=== PATIENT | male | born 1950 | race Caucasian/White ===

== ENCOUNTER 2019-02-23 08:18 | Inpatient (IN) | payer OTHER ==
[2019-02-23 09:09] VITALS: BMI 18.7
--- NOTE | 2019-02-23 09:35 | HP ---
COWS - Scale Resting Pulse: 0= [place] 80 or Below Sweatin= No chills or Flushing Restless Observation: 3= Extraneous Movement Pupil Size: 0= Normal to Room Light Bone or Joint Aches: 4=Acute Joint/Muscle Pain Runny Nose/ Eye Tearin= None GI Upset > 30mins: 0= None Tremor Observation: 0= None Yawning Observation: 0= None Anxiety or Irritability: 2=Irritable/Anxious Goose Flesh Skin: 0=Smooth Skin COWS Score: 9 CIWA Score Nausea/Vomitin-No Nausea/No Vomiting Muscle Tremors: None Anxiety: 3 Agitation: 1-Slight > Activity Paroxysmal Sweats: No Perspiration Orientation: 0-Oriented Tacttile Disturbances: 0-None Auditory Disturbances: 0-None Visual Disturbances: 0-None Headache: 0-None Present CIWA-Ar Total Score: 4 - Admission Criteria OASAS Guidelines: Admission for Medically Managed Detox: Requires at least one of the followin. CIWA greater than 12 2. Seizures within the past 24 hours 3. Delirium tremens within the past 24 hours 4. Hallucinations within the past 24 hours 5. Acute intervention needed for co occurring medical disorder 6. Acute intervention needed for co occurring psychiatric disorder 7. Severe withdrawal that cannot be handled at a lower level of care (continued vomiting, continued diarrhea, abnormal vital signs) requiring intravenous medication and/or fluids 8. Admission ROS [facility] Allergies/Adverse Reactions: Allergies Allergy/AdvReac Type Severity Reaction Status Date / Time Penicillins Allergy Intermediate Hives Verified 02/23/19 08:57 History of Present Illness: pt here requesting detox from heroin , first age of use 13 , then stopped until2 years ago , current daily use 10 bags/day denies ivdu , latest use this morning, current symptoms as above , no withdrawal , reports he anticipates being in withdrawal later this afternoon . cocaine : a few times/week cannabis : occasionally fentanyl - " maybe " oxycodone : denies benzo : denies etoh : 40 oz beer x one , denies symptoms if not drinking . tobacco : 1 ppd , ambivalent bout smoking cessation PMHX : R kidney tumor , monthly infusions , [facility] , next APpt 03/20/19 PSHX : r kidney partial resection , C6-7 fusion , L-spine surgery PSych : denies , denies current SI / HI . meds : denies Search Terms: reji ramirez, 1950 Search Date: 02/23/2019 09:41:14 AM The Drug Utilization Report below displays all of the controlled substance prescriptions, if any, that your patient has filled in the last twelve months. The information displayed on this report is compiled from pharmacy submissions to the Department, and accurately reflects the information as submitted by the pharmacies. This report was requested by: Pamela Ortiz | Reference #: [id number] Others' Prescriptions Patient Name: Reji Ramirez Date: 1950 Address: [address] [id number] Sex: Male Rx Written Rx Dispensed Drug Quantity Days Supply Prescriber Name 02/17/2019 02/20/2019 tramadol hcl 50 mg tablet 120 30 Cho, Stef Cuenca MD 01/07/2019 01/07/2019 buprenorphine 8 mg tablet sl 8 8 Dl Shen 12/31/2018 12/31/2018 buprenorphine-naloxone 8-2 mg sl film 16 8 [facility] 11/26/2018 11/26/2018 tramadol hcl 50 mg tablet 180 30 ChoStef MD 10/29/2018 10/29/2018 tramadol hcl 50 mg tablet 180 30 ChoStef MD 09/17/2018 09/17/2018 tramadol hcl 50 mg tablet 90 15 ChoStef MD 09/03/2018 09/03/2018 tramadol hcl 50 mg tablet 90 15 ChoStef MD 08/20/2018 08/20/2018 tramadol hcl 50 mg tablet 90 15 ChoStef MD 08/06/2018 08/06/2018 tramadol hcl 50 mg tablet 90 15 ChoStef MD 07/22/2018 07/22/2018 tramadol hcl 50 mg tablet 90 15 ChoStef MD 07/08/2018 07/08/2018 tramadol hcl 50 mg tablet 90 15 ChoStef MD 06/11/2018 06/11/2018 tramadol hcl 50 mg tablet 90 15 ChoStef MD 05/19/2018 05/19/2018 tramadol hcl 50 mg tablet 90 15 ChoStef MD 05/04/2018 05/05/2018 oxycodone-acetaminophen 5-325 mg tablet 10 2 Karla Palma ( BE[facility]ZAD) 04/23/2018 04/23/2018 tramadol hcl 50 mg tablet 90 15 ChoStef MD 04/09/2018 04/09/2018 tramadol hcl 50 mg tablet 90 15 ChoStef MD 03/26/2018 03/26/2018 tramadol hcl 50 mg tablet 90 15 Cho, Stef Cuenca MD 03/12/2018 03/12/2018 tramadol hcl 50 mg tablet 28 7 Ga Koehler Exam Limitations: No Limitations - Ebola screening Have you traveled outside of the country in the last 21 days: No Have you had contact with anyone from an Ebola affected area: No - Review of Systems Constitutional: See HPI, Loss of Appetite, Unintentional Wgt. Loss (reports 40 lbs in the year) EENT: reports: Other (glasses) Respiratory: reports: No Symptoms reported Cardiac: reports: No Symptoms Reported GI: reports: No Symptoms Reported : reports: No Symptoms Reported Musculoskeletal: reports: See HPI Integumentary: reports: Dryness, Other (easy bruising) Neuro: reports: No Symptoms reported Endocrine: reports: No Symptoms Reported Psychiatric: reports: Orientated x3, Anxious Patient History - Smoking Cessation Smoking history: Current every day smoker Have you smoked in the past 12 months: Yes Hx Chewing Tobacco Use: No Initiated information on smoking cessation: No - Substances abused Heroin Substance route: Inhalation Frequency: Daily Amount used: 8-10 BAGS Age of first use: 13 Date of last use: 02/23/19 Cocaine Substance route: Inhalation Frequency: 1-2 times per week Amount used: 1/2GRAM Age of first use: 17 Date of last use: 02/22/19 Family Disease History - Family Disease History Family Disease History: CA: Mother (d. lung CA 84 ), Brother (d. brain CA 62 ), Other: Father (d. 75 unknown cause ), Mother, Brother, Daughter (neutrophilia ) Admission Physical Exam BHS - Vital Signs Vital Signs: Vital Signs - 24 hr 02/23/19 09:03 Temperature 97.8 F Pulse Rate 74 Respiratory 17 Rate Blood Pressure 110/62 - Physical General Appearance: Yes: Disheveled, Mild Distress, Anxious HEENTM: Yes: Normocephalic, Normal Voice, Other (large mass suprasternal notch , pt states aware , due to cancer, oncology expamined and ongoing infusions to address .) Respiratory: Yes: Lungs Clear, Normal Breath Sounds, No Respiratory Distress, No Accessory Muscle Use Neck: Yes: No masses,lesions,Nodules, Trachea in good position Cardiology: Yes: Regular Rhythm, Regular Rate, S1, S2 Abdominal: Yes: Non Tender, Flat, Soft, Surgical Scar Back: Yes: Normal Inspection Musculoskeletal: Yes: Gait Steady Extremities: Yes: Normal Range of Motion, Non-Tender, Erythema (robert le) Integumentary: Yes: Pitting Edema (robert LE), Other (fragile skin , numerous excoriations UE / LE tattoos) - Diagnostic (1) Opiate abuse, continuous Current Visit: Yes Status: Acute (2) Cocaine abuse, episodic use Current Visit: Yes Status: Acute (3) Cannabis use disorder, mild, abuse Current Visit: Yes Status: Acute (4) Nicotine dependence Current Visit: Yes Status: Chronic Qualifiers: Nicotine product type: cigarettes Inpatient Rehab Admission - Rehab Decision to Admit Inpatient rehab admission?: No
[2019-02-23] MEDS ORDERED: BISMUTH SUBSALICYLATE 524 MG/30 ML UD PO PRN (10:22)
[2019-02-23] MEDS ORDERED: MENTHOL/PHENOL 1 EACH UD MM PRN (10:22)
[2019-02-23] MEDS ORDERED: MAGNESIUM CITRATE 300 ML BOTTLE PO PRN (10:22)
[2019-02-23] MEDS ORDERED: IBUPROFEN 400 MG TABLET (FP) PO PRN (10:22)
[2019-02-23] MEDS ORDERED: MAG HYDROX/AL HYDROX/SIMETH 30 ML UNIT-DOSE CUP PO PRN (10:22)
[2019-02-23] MEDS ORDERED: ACETAMINOPHEN 325 MG TABLET (FP) PO PRN ×2 (10:22)
[2019-02-23] MEDS ORDERED: hydrOXYzine HCL 25 MG TABLET (FP) PO PRN (10:22)
[2019-02-23] MEDS ORDERED: MAGNESIUM HYDROX 2400MG/30ML ORAL SUSPENSION 30 ML CUP PO PRN (10:22)
[2019-02-23] MEDS ORDERED: cloNIDine HCL 0.1 MG TABLET PO PRN (10:23)
[2019-02-23] MEDS: NICOTINE POLACRILEX 2 MG GUM BUC PRN (18:02)
[2019-02-23] MEDS: THIAMINE HCL 100 MG TABLET (FP) PO SCH (22:14)
[2019-02-23] MEDS: MELATONIN 5 MG TABLETS PO PRN (22:15)
[2019-02-23] MEDS ORDERED: METHADONE HCL 5 MG TABLET (FOR DETOX USE ONLY) PO ONE (23:00)
[2019-02-24] MEDS ORDERED: METHADONE HCL 10 MG TABLET (FOR DETOX USE ONLY) PO ONE ×2 (10:00→11:00)
[2019-02-24 10:02] LABS: HEMATOCRIT 40.9 % (35.4-49); HEMOGLOBIN 13.5 GM/dL (11.7-16.9); MCH 28.1 pg (25.7-33.7); MEAN CELL VOLUME 85.2 fl (80-96); MEAN PLT VOLUME 8.7 fl (7.5-11.1); PLATELET COUNT 462 K/MM3 (134-434); WHITE BLOOD COUNT 10.3 K/mm3 (4.0-10.0)
[2019-02-24 10:19] LABS: ALBUMIN 3.5 g/dl (3.4-5.0); BILIRUBIN,TOTAL 0.5 mg/dL (0.2-1); BLOOD UREA NITROGEN 15.6 mg/dL (7-18); CALCIUM 9.2 mg/dL (8.5-10.1); CREATININE 0.8 mg/dL (0.55-1.3); POTASSIUM 4.3 mmol/L (3.5-5.1); TOT PROT 8.7 g/dl (6.4-8.2)
[2019-02-24] MEDS ORDERED: cloNIDine HCL 0.1 MG TABLET PO PRN (10:20)
--- NOTE | 2019-02-24 10:26 | PN ---
BHS COWS - Scale Resting Pulse: 2= [place] 101-120 Sweatin= Chills/Flushing Restless Observation: 1= Difficult to Sit Still Pupil Size: 0= Normal to Room Light Bone or Joint Aches: 1= Mild Discomfort Runny Nose/ Eye Tearin= Runny Nose/Eyes GI Upset > 30mins: 1= Stomach Cramp Tremor Observation of Outstretched Hands: 1= Tremor [place], Not Seen Yawning Observation: 0= None Anxiety or Irritability: 2=Irritable/Anxious Goose Flesh Skin: 3=Piloerection COWS Score: 14 BHS Progress Note (SOAP) Subjective: pt states he came last night, still feels like he is in withdrawal. Rec'd 15 mg of methadone this morning. O: Vital Signs - 24 hr 02/23/19 02/23/19 02/23/19 13:27 17:34 21:12 Temperature 98.4 F 98.2 F 99 F Pulse Rate 88 84 97 H Respiratory 18 16 16 Rate Blood Pressure 121/70 130/62 141/86 02/24/19 02/24/19 06:13 09:21 Temperature 97.9 F 98.1 F Pulse Rate 94 H 90 Respiratory 16 16 Rate Blood Pressure 126/78 118/63 Laboratory Tests 02/24/19 02/24/19 07:50 07:50 WBC 10.3 H RBC 4.80 Hgb 13.5 Hct 40.9 MCV 85.2 MCH 28.1 MCHC 33.0 RDW 19.0 H Plt Count 462 H MPV 8.7 Sodium 137 Potassium 4.3 Chloride 102 Carbon Dioxide 27 Anion Gap 9 BUN 15.6 Creatinine 0.8 Est GFR (CKD-EPI)AfAm 105.64 Est GFR (CKD-EPI)NonAf 91.15 Random Glucose 100 Calcium 9.2 Total Bilirubin 0.5 AST 17 ALT 23 Alkaline Phosphatase 87 Total Protein 8.7 H Albumin 3.5 a/p: will increase methadone dosing, d/w pt correction methadone tx clonidine/vistaril/Klonopin prn for Sx relief
[2019-02-24] MEDS ORDERED: NALOXONE HCL 0.4 MG/ML VIAL IM PRN (10:45)
[2019-02-24] MEDS: PRENATAL VITAMINS W/ FOLIC ACID TABLET (FP) PO SCH (10:59)
[2019-02-24] MEDS: clonazePAM 0.5 MG TABLET PO PRN (11:00)
[2019-02-24] MEDS: NICOTINE POLACRILEX 2 MG GUM BUC PRN (11:03)
[2019-02-24] MEDS: NICOTINE 21 MG/24 HOURS TOPICAL PATCH TD SCH (14:00)
[2019-02-24] MEDS: MELATONIN 5 MG TABLETS PO PRN (22:42)
[2019-02-24] MEDS: THIAMINE HCL 100 MG TABLET (FP) PO SCH (22:42)
--- NOTE | 2019-02-25 09:38 | PN ---
BHS COWS - Scale Resting Pulse: 1= [place] 81-100 Sweatin= Chills/Flushing Restless Observation: 1= Difficult to Sit Still Pupil Size: 1= Pupils >than Normal Bone or Joint Aches: 1= Mild Discomfort Runny Nose/ Eye Tearin= Runny Nose/Eyes GI Upset > 30mins: 2= Nausea/Diarrhea Tremor Observation of Outstretched Hands: 1= Tremor [place], Not Seen Yawning Observation: 1= 1-2x During Session Anxiety or Irritability: 2=Irritable/Anxious Goose Flesh Skin: 0=Smooth Skin COWS Score: 13 S Progress Note (SOAP) Subjective: alert,irritable,anxious,pain in the body and back,tremor,interrupted sleep Objective: 02/25/19 09:35 Vital Signs Temperature 97.2 F L 02/25/19 09:25 Pulse Rate 82 02/25/19 09:25 Respiratory Rate 18 02/25/19 09:25 Blood Pressure 122/72 02/25/19 09:25 O2 Sat by Pulse Oximetry (%) Laboratory Last Values WBC 10.3 K/mm3 (4.0-10.0) H 02/24/19 07:50 RBC 4.80 M/mm3 (4.00-5.60) 02/24/19 07:50 Hgb 13.5 GM/dL (11.7-16.9) 02/24/19 07:50 Hct 40.9 % (35.4-49) 02/24/19 07:50 MCV 85.2 fl (80-96) 02/24/19 07:50 MCH 28.1 pg (25.7-33.7) 02/24/19 07:50 MCHC 33.0 g/dl (32.0-35.9) 02/24/19 07:50 RDW 19.0 % (11.9-15.9) H 02/24/19 07:50 Plt Count 462 K/MM3 (134-434) H 02/24/19 07:50 MPV 8.7 fl (7.5-11.1) 02/24/19 07:50 Sodium 137 mmol/L (136-145) 02/24/19 07:50 Potassium 4.3 mmol/L (3.5-5.1) 02/24/19 07:50 Chloride 102 mmol/L (98-107) 02/24/19 07:50 Carbon Dioxide 27 mmol/L (21-32) 02/24/19 07:50 Anion Gap 9 MMOL/L (8-16) 02/24/19 07:50 BUN 15.6 mg/dL (7-18) 02/24/19 07:50 Creatinine 0.8 mg/dL (0.55-1.3) 02/24/19 07:50 Est GFR (CKD-EPI)AfAm 105.64 02/24/19 07:50 Est GFR (CKD-EPI)NonAf 91.15 02/24/19 07:50 Random Glucose 100 mg/dL (74-106) 02/24/19 07:50 Calcium 9.2 mg/dL (8.5-10.1) 02/24/19 07:50 Total Bilirubin 0.5 mg/dL (0.2-1) 02/24/19 07:50 AST 17 U/L (15-37) 02/24/19 07:50 ALT 23 U/L (13-61) 02/24/19 07:50 Alkaline Phosphatase 87 U/L (45-117) 02/24/19 07:50 Total Protein 8.7 g/dl (6.4-8.2) H 02/24/19 07:50 Albumin 3.5 g/dl (3.4-5.0) 02/24/19 07:50 RPR Titer Nonreactive (NONREACTIVE) 02/24/19 07:50 Assessment: 02/25/19 09:36 withdrawal symptom Plan: continue detox,wbc 10,300,possible dehydration,encourage oral fluid,repeat cbc in am,continue detox methadone regimen
[2019-02-25] MEDS ORDERED: METHADONE HCL 5 MG TABLET (FOR DETOX USE ONLY) PO ONE (10:00)
[2019-02-25] MEDS ORDERED: METHADONE HCL 10 MG TABLET (FOR DETOX USE ONLY) PO ONE (10:00)
[2019-02-25] MEDS: PRENATAL VITAMINS W/ FOLIC ACID TABLET (FP) PO SCH (10:09)
[2019-02-25] MEDS: clonazePAM 0.5 MG TABLET PO PRN ×2 (10:09→23:06)
[2019-02-25] MEDS: NICOTINE 21 MG/24 HOURS TOPICAL PATCH TD SCH (10:09)
[2019-02-25] MEDS: THIAMINE HCL 100 MG TABLET (FP) PO SCH (23:06)
--- NOTE | 2019-02-26 09:12 | PN ---
BHS COWS - Scale Resting Pulse: 0= [place] 80 or Below Sweatin= Chills/Flushing Restless Observation: 1= Difficult to Sit Still Pupil Size: 1= Pupils >than Normal Bone or Joint Aches: 2= Severe Diffuse Aches Runny Nose/ Eye Tearin= Nasal Congestion GI Upset > 30mins: 1= Stomach Cramp Tremor Observation of Outstretched Hands: 1= Tremor [place], Not Seen Yawning Observation: 1= 1-2x During Session Anxiety or Irritability: 2=Irritable/Anxious Goose Flesh Skin: 0=Smooth Skin COWS Score: 11 [facility] Progress Note (SOAP) Subjective: alert,irritable,anxious,interrupted sleep,pain in the body and back Objective: 02/26/19 09:10 Vital Signs Temperature 97.2 F L 02/25/19 21:51 Pulse Rate 83 02/25/19 21:51 Respiratory Rate 18 02/26/19 03:30 Blood Pressure 125/55 L 02/25/19 21:51 O2 Sat by Pulse Oximetry (%) 02/26/19 09:10 repeat cbc pending Assessment: 02/26/19 09:11 withdrawal symptom Plan: continue detox methadone regimen
[2019-02-26] MEDS: clonazePAM 0.5 MG TABLET PO PRN (09:43)
[2019-02-26] MEDS: PRENATAL VITAMINS W/ FOLIC ACID TABLET (FP) PO SCH (09:43)
[2019-02-26] MEDS: NICOTINE 21 MG/24 HOURS TOPICAL PATCH TD SCH (09:44)
[2019-02-26] MEDS ORDERED: METHADONE HCL 5 MG TABLET (FOR DETOX USE ONLY) PO ONE (10:00)
[2019-02-26 10:29] LABS: MCH 28.1 pg (25.7-33.7); MEAN PLT VOLUME 8.6 fl (7.5-11.1)
[2019-02-26 10:52] LABS: HEMATOCRIT 37.1 % (35.4-49); HEMOGLOBIN 12.3 GM/dL (11.7-16.9); MCHC 33.1 g/dl (32.0-35.9); MEAN CELL VOLUME 84.8 fl (80-96); PLATELET COUNT 397 K/MM3 (134-434); RBC 4.38 M/mm3 (4.00-5.60); RDW 19.4 % (11.9-15.9); WHITE BLOOD COUNT 11.5 K/mm3 (4.0-10.0)
[2019-02-26] MEDS: THIAMINE HCL 100 MG TABLET (FP) PO SCH (23:17)
--- NOTE | 2019-02-27 09:33 | PN ---
BHS COWS - Scale Resting Pulse: 0= [place] 80 or Below Sweatin= No chills or Flushing Restless Observation: 0= Sits Still Pupil Size: 0= Normal to Room Light Bone or Joint Aches: 4=Acute Joint/Muscle Pain Runny Nose/ Eye Tearin= None GI Upset > 30mins: 0= None Tremor Observation of Outstretched Hands: 0= None Yawning Observation: 1= 1-2x During Session Anxiety or Irritability: 2=Irritable/Anxious Goose Flesh Skin: 0=Smooth Skin COWS Score: 7 S Progress Note (SOAP) Subjective: c/o muscle aches, and tiredness. Objective: 02/27/19 09:32 Vital Signs 02/27/19 02/27/19 02/27/19 03:30 06:00 09:10 Temperature 98.1 F 99.0 F Pulse Rate 82 74 Respiratory 16 16 18 Rate Blood Pressure 122/71 120/70 Assessment: 02/27/19 09:32 AOX3, in no acute respiratory distress. Full ROM, ambulating in the unit. mild withdrawal symptoms. Plan: continue detox.
[2019-02-27] MEDS ORDERED: METHADONE (DETOX) 10 MG, METHADONE (DETOX) 5 MG PO ONE (10:00)
[2019-02-27] MEDS ORDERED: METHADONE HCL 10 MG TABLET (FOR DETOX USE ONLY) PO ONE (10:00)
[2019-02-27] MEDS: PRENATAL VITAMINS W/ FOLIC ACID TABLET (FP) PO SCH (10:12)
[2019-02-27] MEDS: NICOTINE 21 MG/24 HOURS TOPICAL PATCH TD SCH (10:12)
[2019-02-27] MEDS: clonazePAM 0.5 MG TABLET PO PRN (22:21)
[2019-02-27] MEDS: THIAMINE HCL 100 MG TABLET (FP) PO SCH (22:21)
[2019-02-27] MEDS: MELATONIN 5 MG TABLETS PO PRN (22:24)
[2019-02-28] MEDS ORDERED: METHADONE HCL 5 MG TABLET (FOR DETOX USE ONLY) PO ONE (06:00)
[2019-02-28 06:21] VITALS: BP 119/63; PULSE 85; TEMP 98.1
--- NOTE | 2019-02-28 17:53 | DS ---
[facility] Detox Discharge Summary Admission Date: 02/23/19 Discharge Date: 02/28/19 - History Present History: Cocaine Dependence, Opioid Dependence Additional Comments: Patient completed detox successfully. Noted with leukocytosis: ordered for stat CBC and UA but patient refused, stating he's not staying and has to leave. Patient instructed to follow up with his PCP within 3 days. Patient left in stable condition. Pertinent Past History: Opioid dependence Cocaine dependence Cannabis use disorder Nicotine dependence - Physical Exam Results Vital Signs: Vital Signs Temperature 98.1 F 02/28/19 06:00 Pulse Rate 85 02/28/19 06:00 Respiratory Rate 16 02/28/19 06:00 Blood Pressure 119/63 02/28/19 06:00 O2 Sat by Pulse Oximetry (%) Pertinent Admission Physical Exam Findings: Withdrawal symptoms Laboratory Tests 02/24/19 02/24/19 02/24/19 07:50 07:50 07:50 WBC 10.3 H RBC 4.80 Hgb 13.5 Hct 40.9 MCV 85.2 MCH 28.1 MCHC 33.0 RDW 19.0 H Plt Count 462 H MPV 8.7 Sodium 137 Potassium 4.3 Chloride 102 Carbon Dioxide 27 Anion Gap 9 BUN 15.6 Creatinine 0.8 Est GFR (CKD-EPI)AfAm 105.64 Est GFR (CKD-EPI)NonAf 91.15 Random Glucose 100 Calcium 9.2 Total Bilirubin 0.5 AST 17 ALT 23 Alkaline Phosphatase 87 Total Protein 8.7 H Albumin 3.5 RPR Titer Nonreactive 02/26/19 07:00 WBC 11.5 H RBC 4.38 Hgb 12.3 Hct 37.1 MCV 84.8 MCH 28.1 MCHC 33.1 RDW 19.4 H Plt Count 397 MPV 8.6 Sodium Potassium Chloride Carbon Dioxide Anion Gap BUN Creatinine Est GFR (CKD-EPI)AfAm Est GFR (CKD-EPI)NonAf Random Glucose Calcium Total Bilirubin AST ALT Alkaline Phosphatase Total Protein Albumin RPR Titer Labs reviewed: wbc 11.5 (ordered for stat cbc and UA but patient refused, instructed to follow up with PCP CRISTINO for further workup) - Treatment Hospital Course: Detox Protocol Followed, Detoxed Safely, Responded well, Discharged Condition Good - Medication Discharge Medications: Ambulatory Orders Tramadol HCl 50 mg PO DAILY PRN 02/23/19 - Diagnosis (1) Cannabis use disorder, mild, abuse Status: Chronic (2) Cocaine abuse, episodic use Status: Chronic (3) Opiate abuse, continuous Status: Acute (4) Nicotine dependence Status: Chronic Qualifiers: Nicotine product type: cigarettes (5) Leukocytosis Status: Acute - AMA Did Patient Leave Against Medical Advice: No (F/U with PCP CRISTINO for abnormal lab result)
== END 2019-02-28 09:42 | disposition home or self-care (01) | DRG 897 ==
LOC: YASAS 08:18 → Y6N 10:19
PROVIDERS: ADMIT Surgery; ATTEND Surgery
PROC: HZ2ZZZZ Detoxification Services for Substance Abuse Treatment (ICD-10-PCS; principal; 2019-02-23)
DX: F11.23 Opioid dependence with withdrawal (principal); F14.20 Cocaine dependence, uncomplicated; F12.10 Cannabis abuse, uncomplicated; F17.210 Nicotine dependence, cigarettes, uncomplicated; D72.829 Elevated white blood cell count, unspecified; Z88.0 Allergy status to penicillin; D49.511 Neoplasm of unspecified behavior of right kidney
CPT/HCPCS: 36415; 80053; 85027; 86593